=== PATIENT | male | born 1990 | race Caucasian/White ===

== ENCOUNTER 2018-01-09 17:50 | Emergency (ER) | payer OTHER ==
[~2018-01-09] VITALS: Ht 180.3 cm; Wt 78.5 kg
[~2018-01-09 17:50] MED LIST: IBU800T
[2018-01-09 18:08] VITALS: BP 133/76
[2018-01-09] MEDS ORDERED: TETANUS-DIPTH-ACEL PERTUSSIS 0.5ML SYRG IM ONE (19:15)
== END 2018-01-09 19:35 | disposition home or self-care (01) ==
LOC: ER 17:50
DX: S61.401A Unspecified open wound of right hand, initial encounter (principal); Z88.6 Allergy status to analgesic agent; Y08.89XA Assault by other specified means, initial encounter; Y93.89 Activity, other specified; Y92.89 Other specified places as the place of occurrence of the external cause; Y99.8 Other external cause status
CPT/HCPCS: 90471

== ENCOUNTER 2018-01-31 16:30 | Emergency (ER) | payer SELFPAY ==
[~2018-01-31] VITALS: Ht 180.3 cm; Wt 79.4 kg
[2018-01-31 17:11] VITALS: BP 113/68
== END 2018-01-31 18:10 | disposition home or self-care (01) ==
LOC: ER 16:30
DX: M79.641 Pain in right hand (principal); F12.10 Cannabis abuse, uncomplicated; Z48.01 Encounter for change or removal of surgical wound dressing
CPT/HCPCS: 73130

== ENCOUNTER 2022-10-05 22:19 | Emergency (ER) | payer SELFPAY ==
[~2022-10-05] VITALS: Ht 180.3 cm; Wt 96.4 kg
[2022-10-05 23:04] LABS: Basophils # (auto) 0.1 10 ^3/uL (0-0.2); Eosinophils # (auto) 0.2 10 ^3/uL (0-0.8); Eosinophils % (auto) 2.5 % (0.0-7.0); Hematocrit 47.2 % (41.0-53.0); Hemoglobin 16.4 g/dL (13.5-17.5); Lymphocytes # (auto) 4.1 10 ^3/uL (0.4-5.4); Lymphocytes % (auto) 50.4 % (10.0-50.0); Mean Corpuscular Hemoglobin 31.5 pg (28.0-32.0); Mean Corpuscular Hgb Conc. 34.7 g/dL (32.0-36.0); Mean Corpuscular Volume 90.9 fL (80.0-100.0); Monocytes # (auto) 0.7 10 ^3/uL (0-1.3); Monocytes % (auto) 8.1 % (0.0-12.0); Neutrophils # (auto) 3.1 10 ^3/uL (1.6-8.6); Nucleated Red Blood Cells % 0.4 %; Red Cell Distribution Width 12.9 % (11.8-14.3); White Blood Cell 8.2 10^3/uL (4.4-10.8)
[2022-10-05 23:21] LABS: Albumin 3.8 g/dL (3.4-5.0); BUN/Creatinine Ratio 9.2; Calcium 9.1 mg/dL (8.5-10.1)
[2022-10-05 23:23] LABS: Bilirubin, Total 0.5 mg/dL (0.2-1.0); Total Protein 7.9 g/dL (6.4-8.2)
[2022-10-05 23:43] LABS: Urine Amorphous Crystal FEW /hpf (None Seen); Urine Bacteria NONE SEEN /hpf (None Seen); Urine Blood Negative /uL (Negative); Urine Specific Gravity 1.023 (1.001-1.035); Urine WBC 1 /hpf (0 - 3)
[2022-10-05] MEDS ORDERED: ONDA-144 PO (23:53)
[2022-10-05] MEDS ORDERED: ACET1CAP14 PO (23:53)
[2022-10-05] MEDS ORDERED: MAGN400S25 PO (23:55)
[2022-10-06 02:25] VITALS: BP 127/91
== END 2022-10-06 02:30 | disposition home or self-care (01) ==
LOC: ER 22:21
DX: K59.00 Constipation, unspecified (principal); A08.4 Viral intestinal infection, unspecified; F12.90 Cannabis use, unspecified, uncomplicated
CPT/HCPCS: 36415; 74176; 80053; 81001; 83690; 85025